=== PATIENT | female | born 1980 | race Caucasian/White ===

== ENCOUNTER 2018-07-08 23:37 | Emergency (ER) | payer OTHER ==
[~2018-07-08] VITALS: Ht 162.6 cm; Wt 52.2 kg
[2018-07-08 23:37] VITALS: BP 127/87
[2018-07-09] MEDS ORDERED: NS 1000ML 1,000 ML IV STA (00:19)
[2018-07-09] MEDS ORDERED: NS 1000ML 1,000 ML ONE (00:33)
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
[2018-07-09 00:44] LABS: BASOPHIL # 0.1 10^3/uL (0.0-0.1); EOSINOPHIL # 0.3 10^3/uL (0.0-0.2); EOSINOPHIL % 4.6 % (0.0-5.0); HEMOGLOBIN 12.3 g/dL (12.0-15.0); LYMPHOCYTES # 1.7 10^3/uL (1.0-4.8); LYMPHOCYTES % 28.2 % (24.0-44.0); MEAN CELL HGB 30.1 pg (26-34); MEAN CELL HGB CONCENTRATION 33.3 g/dL (33-37); MEAN CORP VOLUME 90.2 fL (78-100); MEAN PLATELET VOLUME 9.3 fL (7.8-11.0); MONOCYTES # 0.4 10^3/uL (0.3-0.8); MONOCYTES % 7.2 % (5.0-12.0); NEUTROPHIL # 3.4 10^3/uL (1.8-7.7); NEUTROPHILS % 58.8 % (41.0-85.0); RED CELL DISTRIBUTION WIDTH 14.8 % (11.5-14.5); WHITE BLOOD CELL 5.9 10^3/uL (4.5-11.0)
[2018-07-09 00:50] LABS: BILIRUBIN,URINE NEGATIVE (NEGATIVE); UROBILINOGEN,URINE NORMAL (NEGATIVE)
[2018-07-09 01:00] LABS: HCG URINE PREGNANCY NEGATIVE (NEGATIVE)
[2018-07-09 01:01] LABS: APPEARANCE,URINE HAZY (CLEAR); UA COLOR STRAW (YELLOW)
[2018-07-09 01:03] LABS: CALCIUM 8.2 mg/dL (8.4-10.5)
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
[2018-07-09 05:15] VITALS: BP 127/87
== END 2018-07-09 04:20 | disposition home or self-care (01) ==
LOC: EDBD 23:37 → ER 23:37
DX: E86.0 Dehydration (principal); F15.10 Other stimulant abuse, uncomplicated; F17.210 Nicotine dependence, cigarettes, uncomplicated; F12.10 Cannabis abuse, uncomplicated
CPT/HCPCS: 36415; 80053; 80307 ×3; 80324 ×3; 81000; 81025; 85025; 87077; 87086; 87186; 96360; 99283; J7030